=== PATIENT | female | born 2000 | race Caucasian/White ===

== ENCOUNTER 2020-10-25 19:34 | Emergency (ER) | payer BC, SELFPAY ==
[2020-10-25 19:45] VITALS: BP 138/108; PULSE 90; RESP 19; TEMP 36.6; O2SAT 100
[2020-10-25 19:54] VITALS: BP 125/77; PULSE 92; RESP 16; TEMP 36.6; O2SAT 100
[2020-10-25 20:29] VITALS: BP 113/74; PULSE 71; RESP 16; O2SAT 98
[2020-10-25 20:32] LABS: Basophils Absolute Auto 0.1 K/mm3 (0.0-0.1); Basophils Percent Auto 0.5 % (0.2-1.2); Eosinophils Absolute Auto 0.1 K/mm3 (0-0.3); Hematocrit 44.6 % (37.0-47.0); Hemoglobin 15.1 g/dL (12.0-15.0); Immature Granulocyte Absolute 0.04 K/mm3 (0.00-0.031); Immature Granulocyte Percent A 0.4 % (0-0.5); Lymphocytes Absolute Auto 3.28 K/mm3 (0.9-3.2); Lymphocytes Percent Auto 30.6 % (18.3-44.2); Mean Corpuscular HGB Conc 33.9 g/dl (32-36); Mean Corpuscular Hemoglobin 28.2 pg (26-34); Mean Corpuscular Volume 83.4 fl (80-100); Mean Platelet Volume 8.3 fl (7.4-10.4); Monocytes Absolute Auto 0.7 K/mm3 (0.1-0.6); Monocytes Percent Auto 6.6 % (2.6-8.5); Neutrophils Absolute Auto 6.5 K/mm3 (1.3-6.7); Neutrophils Percent Auto 60.9 % (45.5-73.1); Platelet Count Result 348 k/mm3 (150-375); Red Blood Count 5.35 M/mm3 (4.2-5.4); Red Cell Distribution Width 12.3 % (11.5-14.5); White Blood Count 10.7 K/mm3 (4.5-10.0)
[2020-10-25 20:35] LABS: Add Urine Microscopic? NO; Appearance Urine Clear (Clear); Bilirubin Urine Negative (Negative); Blood Urine Negative (Negative); Color Urine Yellow (Yellow); Glucose Urine UA Negative (Negative); Ketones Urine Negative (Negative); Leukocyte Esterase Ur Negative LEU/UL (Negative); Nitrate Urine Negative (Negative); Protein Urine Negative (Negative); Specific Grav Ur 1.021 (1.001-1.035); Urobilinogen Urine Negative mg/dL (<2.0)
[2020-10-25 20:40] LABS: Alanine Aminotransferase 17 U/L (4-35); Albumin Level 4.6 g/dL (3.5-5.1); Alkaline Phosphatase 73 U/L (38-126); Anion Gap 9 mmol/L (8-16); Aspartate Amino Transferase 34 U/L (14-36); Bilirubin,Total 0.2 mg/dL (0.2-1.3); Blood Urea Nitrogen 14 mg/dL (7-17); Calcium 9.3 mg/dL (8.4-10.2); Carbon Dioxide 27 mmol/L (22-30); Chloride 103 mmol/L (98-107); Estimated CRCL calculation 87 ml/min; Estimated Glomerular Filt Rate > 60; Glucose 111 mg/dL (65-105); Lipase 59 U/L (23-300); Potassium 3.4 mmol/L (3.4-5.0); Sodium 139 mmol/L (137-145)
[2020-10-25 21:21] VITALS: BP 117/77; PULSE 94; RESP 18; O2SAT 100
[2020-10-25] MEDS: BELLADONNA ALK/PHENOB ELIX 10 ML, MAG HYDROX/ALUMINUM HYD/SIMETH 30 ML, LIDOCAINE HCL 2... PO (21:21)
--- NOTE | 2020-10-25 22:44 | ED.ABDPAIN ---
HPI - Abdominal Pain General Chief Complaint: Abdominal Pain Stated Complaint: abd pain Time Seen by Provider: 10/25/20 20:08 Source: patient Mode of arrival: ambulatory Limitations: no limitations History of Present Illness HPI narrative: 20-year-old female In the pain in her left upper abdomen and flank for 5 days Denies any other concomitant symptoms such as nausea or vomiting constipation fever She said she did have one loose stool yesterday but that did not seem to be related to any of the symptoms She does not have a cough or shortness of breath No dysuria or hematuria She noticed that the pain was worse after eating some chicken but other than that nothing else is made it better or worse Related Data Home Medications Medication Instructions Recorded Confirmed norgestimate-ethinyl estradiol tablet 05/19/19 [Estarylla] Allergies Allergy/AdvReac Type Severity Reaction Status Date / Time No Known Allergies Allergy Verified 10/25/20 19:50 Review of Systems Review of Systems: All systems reviewed & are unremarkable except as noted in HPI and below Constitutional: Constitutional: Reports no additional constitutional complaints, Denies chills, Denies fever(s) and Denies headache(s) Eyes: Eyes: Reports no additional eye complaints and Denies change in vision ENT: Denies headache(s) and Denies sore throat Cardiovascular: Cardiovascular: Denies chest pain and Denies dyspnea Respiratory: Respiratory: Denies cough and Denies dyspnea Gastrointestinal: Gastrointestinal: Reports abdominal pain, Reports diarrhea and Denies vomiting Genitourinary: Genitourinary: Denies hematuria, Denies urinary frequency, Denies nocturia, Denies dysuria and Reports flank pain Musculoskeletal: Musculoskeletal: Denies deformity, Denies arthralgias, Denies joint swelling and Denies numbness Integumentary/Breasts: Skin/Breast: Denies rash and Denies wounds Neurologic: Denies headache(s), Denies focal weakness and Denies numbness Psychiatric: Psychiatric: Reports no additional psychiatric complaints Endocrine: Endocrine: Reports no additional endocrine complaints Hematologic/Lymphatic: Hematologic/Lymphatic: Reports no additional hematologic/lymphatic complaints Allergic/Immunologic: Allergic/Immunologic: Reports no additional allergic/immunologic complaints FOR[facility]LY [facility] Past Medical History Medical History (Updated 10/25/20 @ 22:47 by Rudolph Courtney MD) Bilateral arm fractures Fracture of right ankle GERD (gastroesophageal reflux disease) History of inguinal hernia Surgical History Surgical History (Updated 05/19/19 @ 19:08 by Brandon Campos) History of inguinal hernia repair History of tonsillectomy and adenoidectomy Social History Social History Gender identity (if verbalized by the patient): Female Exam Const: General: cooperative, no acute distress and alert Orientation/consciousness: patient oriented x3 (alert) HENMT: Head: normal to inspection, normocephalic and atraumatic Ears: external ears normal General nose exam: no epistaxis Eyes: Conjunctivae: conjunctivae normal EOM: EOMs intact bilaterally Neck: Neck: normal visual inspection, supple and no JVD Chest: Chest palpation & inspection: no tenderness Resp: Effort & Inspection: normal respiratory effort and not labored Auscultation: clear to auscultation bilaterally and other (BS =) Cardio: Rate: regular rate Rhythm: regular rhythm Heart sounds: no murmurs GI: Inspection: non-distended GI Palp: Yes Soft to palpation, No Tenderness to palpation present (GI) and No Rebound tenderness present : General: Yes no CVA tenderness Skin: General skin exam: normal color and no rashes or lesions noted Neuro: General: patient oriented x3 (alert) and moves all extremities Speech: normal speech Extrem: General: normal to inspection and no pedal edema Psych: Affect: normal affect Course Course Emergency Course: On reevaluation she omero
[2020-10-25 22:56] VITALS: BP 112/67; PULSE 85; RESP 18; O2SAT 99
== END 2020-10-25 23:08 | disposition home or self-care (01) ==
PROVIDERS: Emergency Medicine; Emergency Provider Emergency Medicine; PCP Family Medicine Sports Medicine
DX: R10.12 Left upper quadrant pain (principal); S29.012A Strain of muscle and tendon of back wall of thorax, initial encounter; K21.9 Gastro-esophageal reflux disease without esophagitis; X50.9XXA Other and unspecified overexertion or strenuous movements or postures, initial encounter
CPT/HCPCS: 36415; 80053; 81003; 81025; 83690; 85025; 99283; A9270

== ENCOUNTER 2021-10-16 14:45 | Outpatient (CLI) | payer BC, SELFPAY ==
--- NOTE | ~2021-10-16 | US_ITS ---
EXAMINATION: US pelvic complete w TV DATE: 10/16/2021 15:40 INDICATION: Irregular menstruation. TECHNIQUE: Multiple transabdominal and transvaginal sonographic images of the pelvis were obtained. COMPARISON: None. FINDINGS: TRANSABDOMINAL ULTRASOUND: The uterus measures 7.5 x 3.7 x 4.9 cm. There is no free fluid in the pelvis. TRANSVAGINAL ULTRASOUND: The endometrial complex measures 12 mm in thickness. The right ovary measures 3.1 x 1.5 x 1.5 cm. The left ovary measures 3.5 x 2.9 x 3.3 cm. There is normal vascular flow in the ovaries. IMPRESSION: 1. Normal pelvis. Reviewed, dictated and finalized at location A. IMPRESSION: 1. Normal pelvis.
== END 2021-10-16 14:46 | disposition home or self-care (01) ==
PROVIDERS: PCP Family Medicine Sports Medicine; Visit Provider Obstetrics & Gynecology
DX: N92.6 Irregular menstruation, unspecified (principal)
CPT/HCPCS: 76830; 76856

== ENCOUNTER 2021-12-13 10:01 | Outpatient (CLI) | payer BC, SELFPAY ==
[2021-12-13 10:50] LABS: Basophils Absolute Auto 0.1 K/mm3 (0.0-0.1); Basophils Percent Auto 0.6 % (0.2-1.2); Eosinophils Absolute Auto 0.1 K/mm3 (0-0.3); Eosinophils Percent Auto 0.7 % (0-4.4); Hematocrit 40.1 % (37.0-47.0); Immature Granulocyte Absolute 0.05 K/mm3 (0.00-0.031); Immature Granulocyte Percent A 0.6 % (0-0.5); Lymphocytes Absolute Auto 1.85 K/mm3 (0.9-3.2); Lymphocytes Percent Auto 20.7 % (18.3-44.2); Mean Corpuscular HGB Conc 34.9 g/dl (32-36); Mean Corpuscular Volume 85.9 fl (80-100); Mean Platelet Volume 8.7 fl (7.4-10.4); Monocytes Absolute Auto 0.6 K/mm3 (0.1-0.6); Monocytes Percent Auto 6.2 % (2.6-8.5); Neutrophils Absolute Auto 6.4 K/mm3 (1.3-6.7); Neutrophils Percent Auto 71.2 % (45.5-73.1); Platelet Count Result 238 k/mm3 (150-375); Red Blood Count 4.67 M/mm3 (4.2-5.4); Red Cell Distribution Width 12.7 % (11.5-14.5); White Blood Count 8.9 K/mm3 (4.5-10.0)
[2021-12-13 10:59] LABS: Alanine Aminotransferase 17 U/L (6-35); Albumin Level 4.1 g/dL (3.5-5.1); Alkaline Phosphatase 55 U/L (38-126); Anion Gap 8 mmol/L (8-16); Aspartate Amino Transferase 25 U/L (14-36); Bilirubin,Total 0.2 mg/dL (0.2-1.3); Blood Urea Nitrogen 7 mg/dL (7-17); Calcium 8.6 mg/dL (8.4-10.2); Carbon Dioxide 22 mmol/L (22-30); Chloride 108 mmol/L (98-107); Estimated Glomerular Filt Rate > 60; Glucose 93 mg/dL (65-110); Lactate Dehydrogenase 378 U/L (313-618); Potassium 3.2 mmol/L (3.4-5.0); Sodium 138 mmol/L (137-145); Uric Acid 4.7 mg/dL (2.5-7.5)
[2021-12-13 11:40] LABS: HIV 1/2 Ab P24 Ag Result Negative (Negative)
[2021-12-13 12:09] LABS: Hepatitis B Surface Antigen Negative (Negative); Rubella IgG Antibody 10.4 IU/ML
[2021-12-16 10:35] LABS: Rapid Plasma Reagin Non-Reactive (NonReactive)
[2021-12-17 14:52] LABS: Varicella IgG Antibody <135.00 Index (>=165.00)
[2021-12-23 11:46] LABS: SMA 2.0 RISK VARIANT NOT DETECTED
[2021-12-28 02:57] LABS: CF Result NEGATIVE (NEGATIVE)
== END 2021-12-13 10:02 | disposition home or self-care (01) ==
LOC: ANHLAB 10:03
PROVIDERS: PCP Family Medicine Sports Medicine; Visit Provider Obstetrics & Gynecology
DX: Z34.90 Encounter for supervision of normal pregnancy, unspecified, unspecified trimester (principal); Z87.59 Personal history of other complications of pregnancy, childbirth and the puerperium
CPT/HCPCS: 36415; 80053; 81220; 81329; 83615; 84550; 84702; 85025; 86592; 86644; 86703; 86747; 86762; 86787; 86850; 86900; 86901; 87086; 87340; G0432

== ENCOUNTER 2021-12-14 12:58 | Outpatient (CLI) | payer BC, SELFPAY ==
[2021-12-14 15:31] LABS: Total Volume 24 Hour Urine 600 ml
[2021-12-14 15:33] LABS: Total Volume 24 Hour Urine 600 ml
[2021-12-14 15:58] LABS: Creatinine 24 Hour Urine 0.7 gm/24 (0.8-1.8); Creatinine Urine 126.9 mg/dL; Total Protein Urine 24 Hr 30 mg/24hr (28-141); Total Protein Urine Random < 5 mg/dL
== END 2021-12-14 12:59 | disposition home or self-care (01) ==
LOC: ANHLAB 12:59
PROVIDERS: PCP Family Medicine Sports Medicine; Visit Provider Obstetrics & Gynecology
DX: Z87.59 Personal history of other complications of pregnancy, childbirth and the puerperium (principal)
CPT/HCPCS: 81050; 82570; 84156

== ENCOUNTER 2022-03-25 08:59 | Outpatient (CLI) | payer BC, SELFPAY ==
[2022-03-25] VITALS (11 sets, daily range): BP systolic 120–128; BP diastolic 75–80; PULSE 98–112; O2SAT 99–100
[2022-03-25 09:48] LABS: Appearance Urine Clear (Clear); Basophils Absolute Auto 0.1 K/mm3 (0.0-0.1); Basophils Percent Auto 0.5 % (0.2-1.2); Bilirubin Urine Negative (Negative); Color Urine Yellow (Yellow); Eosinophils Absolute Auto 0.1 K/mm3 (0-0.3); Eosinophils Percent Auto 0.5 % (0-4.4); Glucose Urine UA Negative (Negative); Hemoglobin 12.9 g/dL (12.0-15.0); Ketones Urine Negative (Negative); Leukocyte Esterase Ur 2+ LEU/UL (NEGATIVE); Lymphocytes Absolute Auto 1.78 K/mm3 (0.9-3.2); Lymphocytes Percent Auto 17.9 % (18.3-44.2); Mean Corpuscular HGB Conc 33.9 g/dl (32-36); Mean Corpuscular Hemoglobin 30.2 pg (26-34); Mean Platelet Volume 8.8 fl (7.4-10.4); Monocytes Absolute Auto 0.6 K/mm3 (0.1-0.6); Monocytes Percent Auto 6.2 % (2.6-8.5); Neutrophils Absolute Auto 7.4 K/mm3 (1.3-6.7); Neutrophils Percent Auto 73.9 % (45.5-73.1); Nitrate Urine Negative (Negative); Platelet Count Result 220 k/mm3 (150-375); Protein Urine Negative (Negative); Red Blood Count 4.27 M/mm3 (4.2-5.4); Red Cell Distribution Width 13.3 % (11.5-14.5); Specific Grav Ur 1.015 (1.001-1.035); Urobilinogen Urine 0.2 mg/dL (<2.0)
[2022-03-25 09:52] LABS: Add Urine Microscopic? YES; Blood Urine Trace-Intact (Negative)
[2022-03-25 09:59] LABS: Bacteria Urine Trace /hpf; Squamous Epithelial Cell Urine Many /hpf (Few)
[2022-03-25 10:03] LABS: Creatinine Urine 55.6 mg/dL; Total Protein Urine Random 8 mg/dL; Ur Ttl Prot Creatinine Ratio 0.14 mg/mg (0-0.20)
[2022-03-25 10:08] LABS: Alanine Aminotransferase 17 U/L (6-35); Albumin Level 3.7 g/dL (3.5-5.1); Alkaline Phosphatase 66 U/L (38-126); Anion Gap 8 mmol/L (8-16); Aspartate Amino Transferase 20 U/L (14-36); Bilirubin,Total 0.2 mg/dL (0.2-1.3); Blood Urea Nitrogen 6 mg/dL (7-17); Calcium 8.8 mg/dL (8.4-10.2); Carbon Dioxide 21 mmol/L (22-30); Chloride 106 mmol/L (98-107); Estimated Glomerular Filt Rate > 60; Glucose 93 mg/dL (65-110); Potassium 3.8 mmol/L (3.4-5.0); Sodium 135 mmol/L (137-145)
== END 2022-03-25 10:20 | disposition home or self-care (01) ==
LOC: ANHOBOP 09:03 → ANHOBPP 09:03
PROVIDERS: PCP Family Medicine Sports Medicine; Visit Provider Obstetrics & Gynecology
DX: O13.9 Gestational [pregnancy-induced] hypertension without significant proteinuria, unspecified trimester (principal); Z3A.00 Weeks of gestation of pregnancy not specified
CPT/HCPCS: 36415; 59025; 80053; 81001; 82570; 84156; 84550; 85025; 87086; 87088; 99199

== ENCOUNTER 2022-04-04 10:34 | Outpatient (CLI) | payer BC, SELFPAY ==
[2022-04-04 11:01] LABS: Basophils Absolute Auto 0.1 K/mm3 (0.0-0.1); Basophils Percent Auto 0.8 % (0.2-1.2); Eosinophils Absolute Auto 0.1 K/mm3 (0-0.3); Eosinophils Percent Auto 0.8 % (0-4.4); Hematocrit 37.7 % (37.0-47.0); Hemoglobin 12.7 g/dL (12.0-15.0); Immature Granulocyte Absolute 0.15 K/mm3 (0.00-0.031); Immature Granulocyte Percent A 1.5 % (0-0.5); Lymphocytes Absolute Auto 1.99 K/mm3 (0.9-3.2); Lymphocytes Percent Auto 19.8 % (18.3-44.2); Mean Corpuscular HGB Conc 33.7 g/dl (32-36); Mean Corpuscular Hemoglobin 30.4 pg (26-34); Mean Corpuscular Volume 90.2 fl (80-100); Mean Platelet Volume 8.7 fl (7.4-10.4); Monocytes Absolute Auto 0.6 K/mm3 (0.1-0.6); Monocytes Percent Auto 5.7 % (2.6-8.5); Neutrophils Absolute Auto 7.2 K/mm3 (1.3-6.7); Neutrophils Percent Auto 71.4 % (45.5-73.1); Platelet Count Result 231 k/mm3 (150-375); Red Blood Count 4.18 M/mm3 (4.2-5.4); Red Cell Distribution Width 12.9 % (11.5-14.5); White Blood Count 10.1 K/mm3 (4.5-10.0)
[2022-04-04 11:51] LABS: HIV 1/2 Ab P24 Ag Result Negative (Negative)
[2022-04-04 12:31] LABS: Glucose 1 Hour PP 50gm Dose 128 mg/dL
== END 2022-04-04 10:35 | disposition home or self-care (01) ==
PROVIDERS: PCP Family Medicine Sports Medicine; Visit Provider Obstetrics & Gynecology
DX: Z34.90 Encounter for supervision of normal pregnancy, unspecified, unspecified trimester (principal); Z3A.00 Weeks of gestation of pregnancy not specified
CPT/HCPCS: 36415; 82947; 84702; 85025; 86703; G0432

== ENCOUNTER 2022-04-24 18:05 | Observation (INO) | payer BC, SELFPAY ==
[2022-04-24 18:26] VITALS: BP 126/72; PULSE 101
[2022-04-24 19:00] VITALS: BMI 27.8
--- NOTE | 2022-04-24 20:22 | OBADM ---
This patient, Aby Reza, admitted to the OB room OB Post 117 for observation. Patient/family oriented to hospital policies and general routines including ID bracelet, bed and alarms, visiting hours, pain management, procedures, bathroom and other care routines, personal items, smoking policy, room service/diet, and visiting hours. Patient/Family are encouraged to report perceived risks to care and to ask questions if they do not understand what they are told or what they should do.
--- NOTE | 2022-04-25 00:24 | PC.NURSE ---
1854- called Dr. Clayton- informed of pt admission for left lower abdomen pain/groin pain that started at 1740.. describes it as a sharp/stabbing pain. pt states that it is hard to lift her left leg up. while palpating abdomen- scar noted on left lower abdomen/pubic area- pt tender to touch over scar area. pt states that she had hernia surgery in 2010 on the left side where her pain is. FHT reviewed. orders received to d/c home with instructions to use belly band for abdominal support, tylenol 1000mg as needed for pain/discomfort, if discomfort does not subside with rest, call office and may set up PT.
--- NOTE | 2022-04-25 11:31 | PM.OBTRLD ---
OB - Triage/Final Diagnosis Visit Information Comments/Additional reasons for admission: I have assessed the risk for this patient, Aby Reza, and determined that she would benefit from observation care. Evaluation Vital signs: Vital Signs - 24 hr 04/24/22 18:26 Pulse Rate 101 H Blood Pressure 126/72 Final Diagnosis (1) Abdominal pain affecting : Code(s): O26.899 - Other specified related conditions, unspecified trimester; R10.9 - Unspecified abdominal pain Status: Acute
== END 2022-04-24 19:28 | disposition home or self-care (01) ==
PROVIDERS: Admitting Provider Obstetrics & Gynecology; PCP Family Medicine Sports Medicine; Visit Provider Obstetrics & Gynecology
DX: O26.893 Other specified pregnancy related conditions, third trimester (principal); R10.31 Right lower quadrant pain; Z3A.31 31 weeks gestation of pregnancy
CPT/HCPCS: G0378; G0379

== ENCOUNTER 2022-05-26 13:00 | Inpatient (IN) | payer BC, SELFPAY ==
[2022-05-26] VITALS (13 sets, daily range): BP systolic 112–123; BP diastolic 66–79; PULSE 102–120; O2SAT 97–100; BMI 31.0
[2022-05-26 13:35] LABS: Appearance Urine Slightly Cloudy (Clear); Bilirubin Urine Negative (Negative); Blood Urine Negative (Negative); Color Urine Light Yellow (Yellow); Glucose Urine UA Negative (Negative); Ketones Urine Negative (Negative); Leukocyte Esterase Ur 3+ LEU/UL (NEGATIVE); Nitrate Urine Negative (Negative); Protein Urine Negative (Negative); Urobilinogen Urine 0.2 mg/dL (<2.0); pH Urine 6.5 (5.0-9.0)
[2022-05-26 13:42] LABS: Bacteria Urine Trace /hpf; Mucus Urine Rare /lpf; Squamous Epithelial Cell Urine Moderate /hpf (Few); WBC Urine 16-20 /hpf (0-3)
[2022-05-26 13:43] LABS: Add Urine Microscopic? YES
[2022-05-26] MEDS: BETAMETHASONE SOD PHOS/ACETATE 30 MG/5 ML VIAL 12 MG IM (14:52)
[2022-05-26] MEDS: NIFEdipine 10 MG CAPSULE PO (14:52)
[2022-05-26] MEDS: ACETAMINOPHEN 500 MG TABLET 1000 MG PO (16:05)
--- NOTE | 2022-05-26 17:40 | PC.NURSE ---
Orders entered under Dr. Jimenez actually received by Dr. Clayton.
[2022-05-26] MEDS: TERBUTALINE SULFATE 1 MG/ML VIAL 0.25 MG SUB-Q (17:51)
[2022-05-26] MEDS: LACTATED RINGERS 1,000 ML 125 ML IV CONT (19:53)
[2022-05-26] MEDS: AMPICILLIN 2 GM/NS 100 ML 2 GM/100 ML BAG IVPB (19:54)
[2022-05-26 20:20] LABS: Basophils Percent Auto 0.3 % (0.2-1.2); Eosinophils Percent Auto 0.1 % (0-4.4); Hematocrit 36.6 % (37.0-47.0); Hemoglobin 12.5 g/dL (12.0-15.0); Immature Granulocyte Absolute 0.09 K/mm3 (0.00-0.031); Immature Granulocyte Percent A 1.3 % (0-0.5); Lymphocytes Absolute Auto 0.64 K/mm3 (0.9-3.2); Lymphocytes Percent Auto 9.1 % (18.3-44.2); Mean Corpuscular HGB Conc 34.2 g/dl (32-36); Mean Corpuscular Hemoglobin 29.7 pg (26-34); Mean Corpuscular Volume 86.9 fl (80-100); Monocytes Absolute Auto 0.1 K/mm3 (0.1-0.6); Neutrophils Absolute Auto 6.2 K/mm3 (1.3-6.7); Neutrophils Percent Auto 88.2 % (45.5-73.1); Platelet Count Result 198 k/mm3 (150-375); Red Blood Count 4.21 M/mm3 (4.2-5.4); Red Cell Distribution Width 13.2 % (11.5-14.5); White Blood Count 7.1 K/mm3 (4.5-10.0)
[2022-05-27] VITALS (305 sets, daily range): BP systolic 94–143; BP diastolic 56–98; PULSE 65–214; RESP 16; TEMP 36.4–37.6; O2SAT 90–100
[2022-05-27] MEDS: AMPICILLIN 1 GM/NS 50 ML 1 GM/50 ML BAG IVPB ×6 (00:10→22:09)
[2022-05-27] MEDS: LACTATED RINGERS 1,000 ML 125 ML IV CONT ×3 (04:06→22:17)
[2022-05-27] MEDS: NIFEdipine 10 MG CAPSULE PO (07:21)
--- NOTE | 2022-05-27 07:22 | WPDOBADMIT ---
Obstetrics - Admit Note Admission Note: record reviewed. No pertinent additions to the history and/or any subsequent changes in the physical findings that are not consistent with the expected course of the were found. Additions to the history and/or subsequent changes in the physical findings follow. Aby is a 21yo @ 35.4wks admitted with contractions; s/p procardia and terb x1, fluids, ampicillin for GBS ppx, and betamethasone x1. Has made change from 2 to 4cm overnight. Continuing to contract q 5min FHT's: 130's/ mod hannah/ + accels/ no decels - cat 1 TOCO: ctx's q5min Keep throughout the day for betamethasone #2 Continue fluids and procardia 10mg q6-8 hrs Continue ampicillin for GBS ppx If no change after 2nd betamethasone, will discharge home
[2022-05-27 10:19] LABS: Rapid Plasma Reagin Non-Reactive (NonReactive)
[2022-05-27] MEDS: fentaNYL CITRATE INJ (*CRX) 100 MCG/2 ML VIAL 50 MCG IV PUSH ×2 (12:53→20:15)
[2022-05-27] MEDS: BETAMETHASONE SOD PHOS/ACETATE 30 MG/5 ML VIAL 12 MG IM (15:08)
--- OUTSIDE RECORDS SUMMARY | 2022-05-27 15:59 | XMS_ITS ---
:2000 Author Care Team Providers Name Role Phone Gianluca Perdomo Primary Care Provider Unavailable Allergies Code Code System Name Reaction Severity Status Onset NKDA ? Medications Name Status Start Date Stop Date ? ? alprazolam 0.25 mg tablet Active ? Not av ailable amoxicillin 875 mg-potassium clavulanate 125 mg tablet Completed ? 08/11/2019 azithromycin 250 mg tablet Completed ? 08/12 citalopram 10 mg tablet Active ? Not avai lable Estarylla 0.25 mg-35 mcg tablet Active ? Not available ibuprofen 600 mg tablet Completed ? 12/23/19 18 labetalol 100 mg tablet Completed ? 08/12/19 20 ondansetron HCl 4 mg tablet Completed ? 07/15 promethazine 25 mg tablet Completed ? 2019 Problems No Known Problems Procedures Date Name Performed by ? ? Tonsillectomy Information not avai lable ? Hernia Repair Information not avai lable Results Lab Results Date Name Specimen Result Interpretation Description Value Range Status Address ? 01/01/2018 Iron + High Iron, Total 177 mcg/dL 27-164 Fin al [facility] TIBC + mcg/dL Diagnostic s - Ferritin, [facility] is: [address] Serum Administra tion, [facility] ? ? Normal Iron Binding 312 mcg/dL 271-448 Final [facility] Capacity (calc) mcg/dL Diagnost ics - (calc) [place]: [address] Administra tion, [facility] ? ? High
--- OUTSIDE RECORDS SUMMARY | 2022-05-27 15:59 | XMS_ITS ---
:2000 Author Care Team Providers Name Role Phone JETT DUKES Primary Care Provider Unavailable Allergies Code Code System Name Reaction Severity Status Onset NKDA ? Medications Name Status Start Date Stop Date ? ? alprazolam 0.25 mg tablet Completed ? 2019 amoxicillin 500 mg capsule Completed ? 07/21 amoxicillin 875 mg-potassium clavulanate 125 mg tablet Completed ? 09/17/2018 azithromycin 250 mg tablet Completed ? 01/19 chlorhexidine gluconate 0.12 % mouthwash Completed ? 07/21/2018 citalopram 10 mg tablet Completed ? 01/20/20 20 Estarylla 0.25 mg-35 mcg tablet Active ? Not available take 1 tablet by mouth daily ibuprofen 600 mg tablet Completed ? 07/21/19 19 Iron (ferrous sulfate) 325 mg (65 mg iron) tablet Completed ? 03/25/2019 Take 1 tablet every day by oral route. labetalol 100 mg tablet Completed ? 05/13/20 19 ondansetron HCl 4 mg tablet Completed ? 03/13 promethazine 25 mg tablet Completed ? 2018 pyridoxine (vitamin B6) 25 mg tablet Completed ? 02/08/2019 Take 1 tablet 4 times a day by oral route. sulfamethoxazole 800 mg-trimethoprim 160 mg tablet Completed ? 07/21/2018 Unisom (doxylamine) 25 mg tablet Completed ? 02/08/2019 Take 12.5 mg 3 times a day by oral route. Problems Name Status Onset Date Source ? Unknown 07/26/2018 ? Pain in Elbow Active ? ? Sprain of Shoulder and Upper Arm Active ? ? Procedures Date Name Performed by ? ? Tonsillectomy Information not nemesio gant Notes: as a child
--- OUTSIDE RECORDS SUMMARY | 2022-05-27 15:59 | XMS_ITS ---
:2000 Author Care Team Providers Name Role Phone LISANDRO ARECHIGA Primary Care Provider [phone] Allergies Code Code System Name Reaction Severity Status Onset NKDA ? Medications Name Status Start Date Stop Date ? ? alprazolam 0.25 mg tablet Completed ? 2019 amoxicillin 500 mg capsule Completed ? 01/25 amoxicillin 875 mg-potassium clavulanate 125 mg Completed ? 09/17/2018 tablet azithromycin 250 mg tablet Completed ? 01/19 chlorhexidine gluconate 0.12 % mouthwash Completed ? 07/21/2018 citalopram 10 mg tablet Completed ? 01/20/20 20 Estarylla 0.25 mg-35 mcg tablet Active ? Not available TAKE 1 TABLET DAILY famotidine 40 mg tablet Completed ? 01/26/20 21 ibuprofen 600 mg tablet Completed ? 07/21/19 19 Iron (ferrous sulfate) 325 mg (65 mg iron) tablet Completed 01/25/2019 03/25/2019 Take 1 tablet every day by oral route. labetalol 100 mg tablet Completed ? 05/13/20 19 naproxen 500 mg tablet Completed ? 1 ondansetron HCl 4 mg tablet Completed ? 03/13 promethazine 25 mg tablet Completed ? 2018 pyridoxine (vitamin B6) 25 mg tablet Completed ? 02/08/2019 Take 1 tablet 4 times a day by oral route. sulfamethoxazole 800 mg-trimethoprim 160 mg Completed ? 07/21/2018 tablet Unisom (doxylamine) 25 mg tablet Completed ? 02/08/2019 Take 12.5 mg 3 times a day by oral route. Problems Name Status Onset Date Source ? Daytime Hypersomnia Active 01/15/2018 ? Fatigue Active 01/15/2018 ? Snoring Active 01/16/20
--- OUTSIDE RECORDS SUMMARY | 2022-05-27 15:59 | XMS_ITS ---
:2000 Author Care Team Providers Name Role Phone Gianluca Perdomo Primary Care Provider Unavailable Allergies Code Code System Name Reaction Severity Status Onset NKDA ? Medications Name Status Start Date Stop Date ? ? alprazolam 0.25 mg tablet Active ? Not av ailable amoxicillin 875 mg-potassium clavulanate 125 mg tablet Active ? Not available azithromycin 250 mg tablet Active ? Not a vailable citalopram 10 mg tablet Active ? Not avai lable Estarylla 0.25 mg-35 mcg tablet Active ? Not available ibuprofen 600 mg tablet Completed ? 01/16/20 18 labetalol 100 mg tablet Active ? Not avai lable ondansetron HCl 4 mg tablet Active ? Not available promethazine 25 mg tablet Active ? Not av ailable Problems Name Status Onset Date Source ? Daytime Hypersomnia Active 01/15/2018 ? Fatigue Active 01/15/2018 ? Snoring Active 01/15/2018 ? Procedures Date Name Performed by ? ? Hernia Repair Information not avai lable ? Tonsillectomy Information not avai lable Results Lab Results None recorded. Past Encounters None recorded. Social History Tobacco Smoking Status Never Smoker Vaccine List None recorded. Plan of Care Reminders Provider Appointments None recorded. ? ? Lab None recorded. ? ? Referral None recorded. ? ? Procedures None recorded. ? ? Surgeries None recorded. ? ? Imaging None recorded. ? ? Vitals 04/09/2018 02:45PM ANY APPOINTMENT 15 Height Weight
--- OUTSIDE RECORDS SUMMARY | 2022-05-27 15:59 | XMS_ITS ---
[...] TIBC + mcg/dL Diagnostic s - Ferritin, [facility] is: [address] Serum Administra tion, [facility] ? ? Normal Iron Binding 312 mcg/dL 271-448 Final [facility] Capacity (calc) mcg/dL Diagnost ics - (calc) [place]: [address] Administra tion, [facility] ? ? High
[2022-05-27] MEDS: OXYTOCIN 30 UNITS/NS 500 ML 30 UNITS/500 ML BAG IV CONT (18:25)
--- NOTE | 2022-05-27 21:26 | P.PNAN_ITS ---
Anes - Eval Pre Procedure Procedure: Labor epidural Date/Time: 05/27/22 21:26 Surgeon: Tony Preop Diagnosis: Abdominal pain with contractions Pre Op Diagnosis: Pressure/Abdominal Pain Patient Data Age: 21 Gender: F Height: 1.57 m Weight: 77 kg Last Vital Signs Temp 98.7 F 05/27/22 19:46 Pulse 107 H 05/27/22 21:16 Resp 16 05/27/22 04:08 BP 135/94 H 05/27/22 21:16 Pulse Ox 98 05/27/22 21:16 O2 Del Method Room Air 05/27/22 19:35 Allergies Allergy/AdvReac Type Severity Reaction Status Date / Time No Known Allergies Allergy Verified 05/27/22 16:09 Home Medications Medication Instructions Recorded Confirmed Type vits 75-iron 28 mg-folic pkg PO 11/15/21 05/02/22 History acid 800 mcg-omega-3 oral combo pack (One A Day Women's DHA) aspirin 81 mg chewable tablet 81 mg PO DAILY 03/25/22 05/27/22 History Laboratory Tests 05/26/22 05/26/22 19:49 19:49 RPR Non-reactive (NonReactive) Antibody Screen Negative : gestational age HCG: positive Patient hx anesthesia problems: none Family hx anesthesia problems: none Results Review: All pre-operative results and documents have been reviewed as part of the pre- operative evaluation. [facility] Past Medical History Medical History Anxiety Bilateral arm fractures Fracture of right ankle GERD (gastroesophageal reflux disease) Gestational diabetes Gestational hypertension History of inguinal hernia Surgical History Surgical History History of endoscopy (~06/12/21) normal History of inguinal hernia repair 2011 History of tonsillectomy and adenoidectomy as child Family History Family History Father Hypertension Hypothyroid Grandparent Diabetes mellitus paternal grandmother Social History Social History Smoking status: Never smoker Alcohol intake: never Substance use: never Substance use type: does not use Lack of Transportation: No Lack of Food: Never True Current Housing: I Have Housing Concerned About Future Housing: No Difficulty Paying Gas/Electric Bills: No Difficulty Paying for Meds: No Currently Unemployed: No Education: High School Diploma/GED Difficulty w/ Childcare or Family Care: No Additional living arrangements comments: parents 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
--- NOTE | 2022-05-27 23:02 | P.PCNOB_ITS ---
OB - Delivery Note Procedure Events: Premature Rupture of Membranes Induction method: None Delivery augmentation: Pitocin Delivery monitor: External FHT and External Uterine Route of delivery: Episiotomy description: None Laceration Description: None Specimen: Yes Quantitative Blood Loss (ml): 300 Anesthesia type: Epidural Disposition: Floor Complications: None Narrative: patient prepped in usual manner for this procedure. Maternal expulsive efforts readily delivered vertex over intact perineum. Rest of baby was delivered without difficulty, cord was clamped cut, and placenta delivered spontaneously as well. Cervix vagina vulva were inspected with no lacerations or tears. Uterus well contracted with minimal bleeding. At this point the procedure was considered terminated with immediate postoperative condition of mother and baby both excellent. [place] Baby Weeks of gestation at delivery: 36 gender: Male Weight (pounds): 6 Weight (ounces): 2 presentation: vertex Placenta delivery description: Spontaneous Cord Vessel Description: 3 Vessels score one minute: 9 score five minutes: 9
--- NOTE | 2022-05-27 23:02 | WPDHPUPDATE1 ---
History and Physical Update Update Date/Time: 05/27/22 23:02 History and Physical has been reviewed, including an updated exam of the patient. There are NO changes in the patient's condition. Risks, benefits, and alternatives have been discussed and questions answered. Patient agrees to proceed with procedure.
--- NOTE | 2022-05-27 23:02 | WPDOBADMIT ---
Obstetrics - Admit Note Admission Note: record reviewed. No pertinent additions to the history and/or any subsequent changes in the physical findings that are not consistent with the expected course of the were found. Additions to the history and/or subsequent changes in the physical findings follow. None.
[2022-05-28] VITALS (14 sets, daily range): BP systolic 110–143; BP diastolic 67–119; PULSE 81–108; RESP 16–20; TEMP 36.2–37.1; O2SAT 85–99
[2022-05-28] MEDS: IBUPROFEN 600 MG TABLET PO ×2 (03:26→17:19)
[2022-05-28] MEDS: ACETAMINOPHEN 325 MG TABLET 650 MG PO (08:19)
[2022-05-28] MEDS: MULTIVIT/MIN/PREN/FOL AC/IRON TABLET 1 TAB PO (08:20)
--- NOTE | 2022-05-28 16:30 | OBPPTRN ---
Patient transferred to post room #288 via wheelchair. Support person present. Oriented to unit, room, information board, rooming in, admission packet and security measures. Patient verbalizes understanding.
[2022-05-28] MEDS: DOCUSATE SODIUM 100 MG CAPSULE PO (16:57)
--- NOTE | 2022-05-28 17:04 | PC.NURSE ---
Reported to RN that mother will attempt to breastfeed, then bottle feed with formula. 1020 - Mother is sleeping.
[2022-05-28 17:09] LABS: Hematocrit 35.9 % (37.0-47.0); Hemoglobin 11.9 g/dL (12.0-15.0)
--- NOTE | 2022-05-28 17:31 | PC.NURSE ---
1670 -Introductions were made, then consulted with patient to assess needs related to . Mother led the conversation with her?plans to feed?her infant and the?experience so far. Primary RN is present and the feeding plan is in place to attempt to breastfeed, pump the breast for stimulating milk production (pump is in the room), then supplement feed infant with either breast milk or formula. Mother voiced understanding of information and will call if there is a request for assistance.
[2022-05-29] MEDS: IBUPROFEN 600 MG TABLET PO ×2 (05:29→17:02)
[2022-05-29 08:00] VITALS: BP 118/83; PULSE 78; RESP 18; TEMP 37.6; O2SAT 100
[2022-05-29] MEDS: MULTIVIT/MIN/PREN/FOL AC/IRON TABLET 1 TAB PO (08:34)
[2022-05-29] MEDS: DOCUSATE SODIUM 100 MG CAPSULE PO ×2 (08:34→17:02)
--- NOTE | 2022-05-29 09:24 | PM.OBDSVD ---
DS: Admitting Diagnosis Discharge Date 05/29/2022 Admitting Diagnosis OB - DS: Summary OB Procedures : None OB Procedures Intrapartum: Spontaneous Vag Delivery OB Procedures: : None Time Spent with Patient Time attestation: Total time spent providing and/or coordinating discharge services: DS: Data Data Completed and Pending Pending studies at discharge: Pending at discharge 05/27/22 22:58 Surgical [PTH] Routine Labs on day of discharge: Labs from last 24 hours 05/28/22 16:56 Hgb 11.9 L Hct 35.9 L Discharge Plan Discharge Discharging Clinician: Jose Alfredo Jimenez Patient Disposition: Home, Self-Care Activity: as tolerated Diet: as tolerated Patient Instructions: Antibiotic Form Stand Alone Forms: General Discharge Information Follow-up/Referrals: Jose Alfredo Jimenez MD [Physician] - 3 Weeks Discharge Medications: New ibuprofen 600 mg Tablet 600 mg PO Q6H PRN (Reason: Cramping) Qty: 30 0RF Continued One A Day Women's DHA 28 mg iron- 800 mcg combo pack PO Discontinued aspirin 81 mg Tablet,Chewable 81 mg PO DAILY Date of admission: 05/26/22 13:00 Primary Care Provider: Jesus Alberto,Zhao Deutsch Admitting Provider: Jose Alfredo Jimenez Attending physician on admission: Jose Alfredo Jimenez Condition: Stable
--- NOTE | 2022-05-29 13:53 | PC.NURSE ---
Primary RN reported to RN that patient is pumping her breast for milk and plans to bottle feed her EGA 35 4/ infant.
[2022-05-29 20:25] VITALS: BP 129/75; PULSE 92; RESP 18; TEMP 36.7
[2022-05-30 08:00] VITALS: PULSE 70; RESP 18; O2SAT 100
[2022-05-30 08:20] VITALS: BP 113/69; PULSE 70; RESP 18; TEMP 36.9; O2SAT 100
--- NOTE | 2022-05-30 09:12 | PM.OBDSVD ---
DS: Admitting Diagnosis Discharge Date 05/30/2022 Admitting Diagnosis OB - DS: Summary OB Procedures : None OB Procedures Intrapartum: Spontaneous Vag Delivery OB Procedures: : None Time Spent with Patient Time attestation: Total time spent providing and/or coordinating discharge services: DS: Data Data Completed and Pending Pending studies at discharge: Pending at discharge 05/27/22 22:58 Surgical [PTH] Routine Discharge Plan Discharge Discharging Clinician: Jose Alfredo Jimenez Patient Disposition: Home, Self-Care Activity: as tolerated Diet: as tolerated Patient Instructions: Antibiotic Form Stand Alone Forms: General Discharge Information Follow-up/Referrals: Jose Alfredo Jimenez MD [Physician] - 3 Weeks Discharge Medications: New ibuprofen 600 mg Tablet 600 mg PO Q6H PRN (Reason: Cramping) Qty: 30 0RF Continued One A Day Women's DHA 28 mg iron- 800 mcg combo pack PO Discontinued aspirin 81 mg Tablet,Chewable 81 mg PO DAILY Date of admission: 05/26/22 13:00 Primary Care Provider: Jesus AlbertoZhao Admitting Provider: Jose Alfredo Jimenez Attending physician on admission: Jose Alfredo Jimenez Condition: Stable
[2022-05-30] MEDS: IBUPROFEN 600 MG TABLET PO (10:11)
[2022-05-30] MEDS: MULTIVIT/MIN/PREN/FOL AC/IRON TABLET 1 TAB PO (10:11)
--- NOTE | 2022-05-30 10:50 | PC.NURSE ---
Patient was given the opportunity to view the discharge video Mother & Baby Care, The First Two Weeks and to ask questions. Patient declined viewing the video and has been given the mother/baby guide for home reference.
--- NOTE | 2022-05-30 12:47 | PC.NURSE ---
[id number] Mother voiced that she is comfortable with her plan to pump her breast for milk production to bottle feed breast milk to her 35 4/7 infant. Mother confirmed she was not latching her infant and doesn't have any questions or concerns at this time.
--- NOTE | 2022-05-30 12:49 | PC.NURSE ---
1132 Mother is feeding appropriately for growth of . Infant has had appropriate feedings in the last 24 hours meets the outcomes for weight, output and jaundice at this time. Reinforced understanding of milk production, transition of milk, signs of adequate intake, prevention/relief of engorgement, responsive after visualizing feeding cues, the different methods of stimulating infant to breastfeed 2-3 hours after the start of the last feeding, community resources, medication information reviewed per [facility] and when to call a provider using the resource of the mom and baby guide/[facility] website. Mother voiced understanding of the education shared.
[2022-05-31 07:46] VITALS: BP 119/87; PULSE 90; RESP 16; TEMP 36.9; O2SAT 99
== END 2022-05-30 13:49 | disposition home or self-care (01) | DRG 807 ==
LOC: ANHOBPP 05-27 15:56 → ANHLDR 05-27 15:56 → ANHOBPP 05-28 03:05 → ANHOB2 05-28 16:38
PROVIDERS: Obstetrics & Gynecology; Admitting Provider Obstetrics & Gynecology; PCP Family Medicine Sports Medicine; Visit Provider Obstetrics & Gynecology
DX: O42.913 Preterm premature rupture of membranes, unspecified as to length of time between rupture and onset of labor, third trimester (principal); Z37.0 Single live birth; Z3A.36 36 weeks gestation of pregnancy; O62.3 Precipitate labor; O76 Abnormality in fetal heart rate and rhythm complicating labor and delivery; Z3A.35 35 weeks gestation of pregnancy
CPT/HCPCS: 36415; 81001; 84112; 85014; 85018; 85025; 86592; 86850; 86900; 86901; 87086; 87088; 87147; 88307; A9270; J0290; J0702; J2590; J2795; J3010; J3105; J7120

== ENCOUNTER 2022-07-08 13:00 | Emergency (ER) | payer BC, SELFPAY ==
--- NOTE | ~2022-07-08 | XR_ITS ---
Left foot Technique: AP, oblique, and lateral views were obtained. Clinical History: Maunie in foot Findings: There is a fishhook at the lateral aspect of the foot at the level of the mid fifth metatar mary shaft. No acute fracture or dislocation is seen. Osseous alignment is anatomic. Joint spaces are preserved without erosive or degenerative change. Soft tissues are otherwise unremarkable. Impression: Maunie in the lateral aspect of the foot, as detailed above. Reviewed, dictated and finalized at location M. E IN THEATER ATTENDANT Impression: Maunie in the lateral aspect of the foot, as detailed above.
[2022-07-08 13:10] VITALS: BP 144/81; PULSE 89; RESP 14; TEMP 36.7; O2SAT 99
--- NOTE | 2022-07-08 14:28 | ED.GENADULT ---
HPI - General Adult General Chief complaint: Extremity Injury, Lower Stated complaint: FB foot L Time Seen by Provider: 07/08/22 13:56 History of Present Illness HPI narrative: 21-year-old female no past medical history last tetanus shot 12 years ago presented with fishhook to lateral left foot. Per patient she is walking around barefoot in her house, where her significant other dropped a fish previously, she did not see it stepped on it. Was unable to remove it so presents the ED for further evaluation. He reports last tetanus shot was 12 years denies injury anywhere else. Denied other medical complaints. Past medical history: Denied Allergies no known drug allergies Related Data Home Medications Medication Instructions Recorded Confirmed vits 75-iron 28 mg-folic pkg PO 11/15/21 06/17/22 acid 800 mcg-omega-3 oral combo pack (One A Day Women's DHA) Allergies Allergy/AdvReac Type Severity Reaction Status Date / Time No Known Allergies Allergy Verified 07/08/22 14:40 Review of Systems Review of Systems: See HPI PMF Past Medical History Medical History Anxiety Bilateral arm fractures Fracture of right ankle GERD (gastroesophageal reflux disease) Gestational diabetes Gestational hypertension History of inguinal hernia Surgical History Surgical History History of endoscopy (~06/12/21) normal History of inguinal hernia repair 2011 History of tonsillectomy and adenoidectomy as child Family History Family History Father Hypertension Hypothyroid Grandparent Diabetes mellitus paternal grandmother Social History Social History Smoking status: Never smoker Alcohol intake: never Substance use: never Substance use type: does not use Lack of Transportation: No Lack of Food: Never True Current Housing: I Have Housing Concerned About Future Housing: No Difficulty Paying Gas/Electric Bills: No Difficulty Paying for Meds: No Currently Unemployed: No Education: High School Diploma/GED Difficulty w/ Childcare or Family Care: No Additional living arrangements comments: parents 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 Gender identity (if verbalized by the patient): Female Sexual Orientation (if Verbalized by the Patient): Straight or Heterosexual Spiritual care concerns: No Exam Narrative: APPEARANCE: Alert, calm and cooperative, no acute distress, phonating, sitting comfortably during visit HEAD: atraumatic EYES: Pupils equal round an reactive to light, extra ocular movements intact, no conjunctival injection NOSE: Normal no drainage NECK: Supple, without meningismus EXTREMITIES: Fish hook to lateral left foot, no surrounding erythema, no fluctuance, remaining extremities within normal limits, No edema, palpable peripheral pulses, warm, well perfused, no tenderness to bilateral calves. NEURO: Alert, moving all extremities symmetrically SKIN:: Warm, dry. Normal color PSYCHIATRIC: Normal affect/mood Course Vital Signs Vital signs: Vital Signs Temperature 98.1 F 07/08/22 13:10 Pulse Rate 89 07/08/22 13:10 Respiratory Rate 14 07/08/22 13:10 Blood Pressure 144/81 H 07/08/22 13:10 Pulse Oximetry 99 07/08/22 13:10 Oxygen Delivery Room Air 07/08/22 13:10 Temperature 98.1 F 07/08/22 13:10 Pulse Rate 89 07/08/22 13:10 Respiratory Rate 14 07/08/22 13:10 Blood Pressure 144/81 H 07/08/22 13:10 Pulse Oximetry 99 07/08/22 13:10 Oxygen Delivery Room Air 07/08/22 13:10 Procedures Foreign Body Removal Foreign Body #1: Foreign Body Removal Date: 07/08/22 Foreign Body Removal Time: 15:06 Time Out Performed: yes Site: left and foot Description
[2022-07-08] MEDS: TETANUS,DIPHTHERIA,AC PERTUSSIS ADULT (0.5 ML) BOOSTRIX IM (14:46)
== END 2022-07-08 15:30 | disposition home or self-care (01) ==
PROVIDERS: Emergency Provider Emergency Medicine; PCP Family Medicine Sports Medicine
DX: S91.342A Puncture wound with foreign body, left foot, initial encounter (principal); F41.9 Anxiety disorder, unspecified; K21.9 Gastro-esophageal reflux disease without esophagitis; W26.8XXA Contact with other sharp object(s), not elsewhere classified, initial encounter; Z23 Encounter for immunization
CPT/HCPCS: 28190; 73630; 90471; 90715; 99283

== ENCOUNTER 2024-10-12 19:13 | Emergency (ER) | payer OTHER, SELFPAY ==
--- OUTSIDE RECORDS SUMMARY | 2024-10-12 19:15 | XMS_ITS | Continuity of Care Document ---
Author Organization [facility] Address [address] [place] [address] [place] [address] Phone Care Team Providers Care Oxygen Plant Operator Name Role Phone Pollock OD, Rudolph Unavailable Unavailable Procedures Procedure Date Eye Exam, New Patient Advance Directives Directive Yes / No Effective Date File Name No Information Encounters Encounter Description Practice Location Reason(s) For Visit Diagnoses Date Provider Providers Copied on Encounter [facility], [address], [place], [place], [id number], [place] tel:[phone] SEC [facility] No Information 5-200 8 Pollock OD Rudolph. [address] [facility] , [address], [place], [place], [facility], [place]. tel:[phone] Referring Provider: Morena Barlow MD, [address], [place], [place], [facility]. tel:[phone] Family History Family Member Type Diagnosis Age At Onset No Information Payers Payer name Insurance type Covered democrat ID Authoriza tion(s) No Information Social History Type Description Quantity Date Captured Comments Sex Female Smoking Status No Information Chief Complaint And Reason For Visit No Information Reason For Referral Reason For Referral No Information History Of Present Illness Encounter Date Complaint History Of Prese nt Illness No Information Functional Status Date Functional Assessmen t No Information Instructions Date Instruction Additional Infor mation No Information Assessments Type Assessment Date No Information Patient Care Teams Name Effective Dates (start - stop) Status Members No Information
--- OUTSIDE RECORDS SUMMARY | 2024-10-12 19:15 | XMS_ITS | Patient Health Record ---
Author Organization [employer] Address [address] [facility] [address] [place] [address] Care Team Providers Care Supervisor Order Takers Name Role Phone Zhao Mccollum MD [facility] Rafy Gibbons Unavailable [phone] Allergies No Known Allergies Reason For Referral No Information Medications Medication SIG (Take, Route, Frequency, Duration) Notes Start Date End Date Status BCP Active Social History Tobacco Use: Social History Observation Description Date Details (start date - stop date) Never Smoker NA - NA Tobacco Use/Smoking Question Answer Notes Are you a nonsmoker Problems Problem Type SNOMED Code ICD Code Onset Dates Problem Status W/U Status Risk Notes Problem 3836404 Gastritis, unspecified , without bleeding (K29.70) Active confirmed Problem 058849678 Right upper quadrant pain (R10.11) Active confirmed Symptoms are worse after eating with radiation to her back and into her chest. She underwent ultrasound and HIDA scan which are unavailable for review. Differential diagnosis includes a gallbladder etiology, GERD, peptic ulcer disease, and celiac disease. Problem 52110733 Diarrhea (R19.7) Active confirmed Diarrhea since onset of the right upper quadrant pain. Given her family history of celiac disease would like to evaluate. Other considerations include irritable bowel syndrome, small bowel intestinal bacterial overgrowth, food intolerances, or other. Problem 506022127 Family history of celiac disease (Z83.79) Active confirmed Plan Of Treatment Pending Test Test Name Order Date Upper Endoscopy 03/20/2021 Insurance Providers Payer Name Payer Address Payer Phone Subscriber Number Group Number Insured Name Patient Relationship to Insured Coverage Start Date Coverage End Date Blue Access Choice PPO [id number] [address] [place] [phone] [id number] Terry Reza Child - Insured has Financial Responsibility Medical (General) History Surgical History Surgery Date(Month/Year) Hernia Tonsillectomy Hospitalization History Reason Date(Month/Year) Childbirth
--- OUTSIDE RECORDS SUMMARY | 2024-10-12 19:15 | XMS_ITS | Clinical Summary ---
Author Organization [facility] Address [address] [place] [address] Care Team Providers Care Nut Former Name Role Phone Morena Barlow MD Primary Care Provider [phone] Source Comments [facility],non-owned Affiliates and Associated Physician Practices is amultiple site organization consisting of ambulatory clinics and hospital sitesin [place], [place], [place] and [place]. This disclosure is being madepursuant to the Care Everywhere program and may not contain all information available regarding this patient. Last updated 18.[facility] Allergies No known active allergies Medications * Be aware that medications may not be up to date on this document. Alwaysverify current medications with the patient. Medication Sig Dispensed Refills Start Date End Date Status docusate sodium (COLACE) 100 MG capsule Take 1 Cap by mouth once daily. 30 Cap 0 03/21/2012 Active Social History Tobacco Use Types Packs/Day Years Used Date Smoking Tobacco: Never Assessed Sex and Gender Information Value Date Recorded Sex Assigned at Not on file Gender Identity Not on file Sexual Orientation Not on file Last Filed Vital Signs Vital Sign Reading Time Taken Comments Blood Pressure 123/67 03/21/2012 10:11 AM CDT Pulse 96 03/21/2012 10:11 AM CDT Temperature 36.2 C (97.2 F) 03/21/2012 10:11 AM CDT Respiratory Rate 18 03/21/2012 10:11 AM CDT Oxygen Saturation - - Inhaled Oxygen Concentration - - Weight 44.5 kg (98 lb 1.7 oz) 03/21/2012 10:11 A M CDT Height - - Body Mass Index - - Plan of Treatment Health Maintenance Due Date Last Done Comments PAP SMEAR 1998 HIV SCREENING 2013 HPV VACCINE (1 - 3-dose series) 2013 CHLAMYDIA/GONORRHEA SCREENING 2014 HEPATITIS C SCREENING 08/14/2016 DTAP/TDAP/TD VACCINES (1 - Tdap) 2017 HEPATITIS B VACCINE (1 of 3 - 19+ 3-dose series) 2017 COVID-19 VACCINE (1 - 2023-2 5 season) 2024 INFLUENZA VACCINE (#1) 2024 DEPRESSION SCREENING 07/13/2024 ZOSTER VACCINE (1 of 2) 2048 HIB VACCINE Aged Out No longer eligi ble based on patient's age to complete this topic MENINGOCOCCAL (Group B) VACC INE SHARED DECISION-MAKING Aged Out No longer eligibl e based on patient's age to complete this topic MENINGOCOCCAL GROUPS A/C/Y/W VACCINE Aged Out No longer eligible b ased on patient's age to complete this topic PNEUMOCOCCAL VACCINE Aged Out No long er eligible based on patient's age to complete this topic Care Teams Nut Former Relationship Specialty Start Date End Date Morena Barlow MD [address] [facility] [address] [place] [id number] PCP - General Pediatrics 03/21/12
[2024-10-12 19:17] VITALS: BP 115/97; PULSE 101; RESP 15; TEMP 36.4; O2SAT 100
[2024-10-12 19:42] LABS: Basophils Percent Auto 0.4 % (0.2-1.2); Eosinophils Absolute Auto 0.2 K/mm3 (0-0.3); Eosinophils Percent Auto 1.4 % (0-4.4); Hematocrit 43.1 % (37.0-47.0); Hemoglobin 14.8 g/dL (12.0-15.0); Immature Granulocyte Absolute 0.05 K/mm3 (0.00-0.031); Immature Granulocyte Percent A 0.5 % (0-0.5); Lymphocytes Absolute Auto 0.82 K/mm3 (0.9-3.2); Lymphocytes Percent Auto 7.7 % (18.3-44.2); Mean Corpuscular HGB Conc 34.3 g/dl (32-36); Mean Corpuscular Hemoglobin 29.4 pg (26-34); Mean Corpuscular Volume 85.7 fl (80-100); Mean Platelet Volume 8.5 fl (7.4-10.4); Monocytes Absolute Auto 0.4 K/mm3 (0.1-0.6); Monocytes Percent Auto 3.9 % (2.6-8.5); Neutrophils Absolute Auto 9.1 K/mm3 (1.3-6.7); Neutrophils Percent Auto 86.1 % (45.5-73.1); Platelet Count Result 239 k/mm3 (150-375); Red Blood Count 5.03 M/mm3 (4.2-5.4); Red Cell Distribution Width 12.3 % (11.5-14.5); White Blood Count 10.6 K/mm3 (4.5-10.0)
--- NOTE | 2024-10-12 19:42 | ED_ITS ---
HPI - Headache General Chief Complaint: Headache Stated Complaint: Guerrero, n/v Time Seen by Provider: 10/12/24 19:28 History of Present Illness HPI Narrative: 24-year-old female with a history of headaches presenting to the emergency room with chief complaint of headache since Thursday morning. She endorses nausea vomiting. She states started at work and there was reportedly a gas leak at her job on Thursday. Not sure of any similar symptoms are found in her coworkers. She states her headache has been persistent, behind both eyes and sounds and lights are bothering her. She describes as a migraine headache. Denies any thunderclap onset and was gradual in nature. No neuropathy or neurological deficits. No loss of consciousness or altered mental status. No head trauma. No anticoagulation is. She has not tried anything besides Tylenol which has not helped her. Related Data Home Medications ?Medication ?Instructions ?Recorded ?Confirmed ?Last Taken ?Type escitalopram oxalate 10 mg tablet 10 mg PO DAILY 08/14/23 08/14/23 Unknown History modafinil 200 mg tablet 200 mg PO QAM 08/14/23 08/14/23 Unknown History Allergies Allergy/AdvReac Type Severity Reaction Status Date / Time No Known Allergies Allergy Verified 10/12/24 19:14 Review of Systems 2 Review of Systems: As reviewed above in HPI [facility] Past Medical History Medical History Idiopathic hypersomnia Gestational hypertension Gestational diabetes Anxiety Fracture of right ankle Bilateral arm fractures History of inguinal hernia GERD (gastroesophageal reflux disease) Surgical History Surgical History History of gynecological procedure (06/30/22) mirena iud insertion History of endoscopy (~06/12/21) normal History of tonsillectomy and adenoidectomy as child History of inguinal hernia repair 2010 Family History Family History Father Hypertension Hypothyroid Grandparent Diabetes mellitus paternal grandmother Social History Social History Smoking status: Never smoker Second hand tobacco smoke exposure: No Alcohol intake: never Substance use: never Substance use type: does not use Do You Feel Safe in your Home?: Yes Lack of Transportation: No Lack of Food: Never True Current Housing: I Have Housing Concerned About Future Housing: No Difficulty Paying Gas/Electric Bills: No Difficulty Paying for Meds: No Currently Unemployed: No Education: High School Diploma/GED Difficulty w/ Childcare or Family Care: No Living arrangements: with family Additional living arrangements comments: parents Occupation/Education: occupation 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 Mucous membranes moist. NECK: Supple. CHEST: [Clear to auscultation. No respiratory distress.] HEART: [Regular rate and rhythm]. No murmur heard. [Normal peripheral pulses.] ABDOMEN: [Soft, nondistended], [nontender], [No rigidity or guarding] EXTREMITIES: Normal range of motion. [No edema.] SKIN: Warm, dry, no rash. NEURO: [No focal deficits]. Alert and oriented [x3.] PSYCH: [Normal mood and affect.] Course Vital Signs Vital signs: Vital Signs Temperature 36.4 C L 10/12/24 19:17 Pulse Rate 101 H 10/12/24 19:17 Respiratory Rate 15 10/12/24 19:17 Blood Pressure 115/97 H 10/12/24 19:17 Pulse Oximetry 100 10/12/24 19:17 Oxygen Delivery Room Air 10/12/24 19:17 Temperature 36.4 C L 10/12/24 19:17 Pulse Rate 101 H 10/12/24 19:17 Respiratory Rate 15 10/12/24 19:17 Blood Pressure 115/97 H 10/12/24 19:17 Pulse Oximetry 100 10/12/24 19:17 Oxygen Delivery Room Air 10/12/24 19:17 MDM - Headache MDM Narrative Medical decision making narrative: 24-year-old female presenting with a headache she describes as a migraine behind both her eyes associated with nausea, vomiting, photophobia, phonophobia. She was concerned that could be related to a fireplace at a stove she had at her job although no one around her is having similar symptoms. Symptoms going on for 2 days now. Has tried Tylenol without relief. Vital signs reassuring, no significant tachycardia, fever, hypoxia, tachypnea or blood pressure elevations. She has an unremarkable neurological assessment and awake alert oriented. Does exhibit some photophobia with light but otherwise unremarkable exam. Patient will be treated with a migraine cocktail including Decadron, Compazine, diphenhydramine, fluid bolus. Basic laboratory studies and a blood gas were ordered to assess carbon monoxide level although very unlikely given her symptoms going on for 2 days without exposure since Thursday and no around her having similar symptoms. No present suspicion for intracranial pathology without the classical features suspicious for subarachnoid or mass effect. We will re-evaluate patient after medications and she will likely be safe for discharge if workup unremarkable. Patient's workup was reassuring. No significant leukocytosis or anemia. Normal platelet count. ABG shows normal pH, normal carboxyhemoglobin and no other acute concerns. Normal PaO2. Electrolyte panel was unremarkable. Normal creatinine, normal glucose, normal LFTs. Urinalysis with no signs of infection. Negative test. Patient was re-evaluated and had improvement her headache. She is safe for discharge home at this time. Medical Records Attestation: I reviewed the patient's medical records. Lab Data Attestation: I reviewed the patient's lab results. 10/12/24 19:35 10/12/24 19:35 Labs: Lab Results 10/12/24 10/12/24 10/12/24 Range/Units 19:35 19:44 20:02 WBC 10.6 H (4.5-10.0) K/mm3 RBC 5.03 (4.2-5.4) M/mm3 Hgb 14.8 (12.0-15.0) g/dL Hct 43.1 (37.0-47.0) % MCV 85.7 (80-100) fl MCH 29.4 (26-34) pg MCHC 34.3 (32-36) g/dl RDW 12.3 (11.5-14.5) % Plt Count 239 (150-375) k/mm3 MPV 8.5 (7.4-10.4) fl Immature Gran % (Auto) 0.5 (0-0.5) % Neut % (Auto) 86.1 H (45.5-73.1) % Lymph % (Auto) 7.7 L (18.3-44.2) % [place] % (Auto) 3.9 (2.6-8.5) % Eos % (Auto) 1.4 (0-4.4) % Baso % (Auto) 0.4 (0.2-1.2) % Lymph # (Auto) 0.82 L (0.9-3.2) K/mm3 [place] # (Auto) 0.4 (0.1-0.6) K/mm3 Eos # (Auto) 0.2 (0-0.3) K/mm3 Baso # (Auto) 0.0 (0.0-0.1) K/mm3 Abs Immat Gran (auto) 0.05 H (0.00-0.031) K/mm3 Absolute Neuts (auto) 9.1 H (1.3-6.7) K/mm3 Absolute Nucleated RBC 0.000 (0.0-0.012) K/mm3 Nucleated RBC % 0.0 (0.0-0.2) % Methemoglobin 0.4 (0-1.5) %THb Sodium 137 (137-145) mmol/L Potassium 3.9 (3.4-5.0) mmol/L Chloride 104 (98-107) mmol/L Carbon Dioxide 23 (22-30) mmol/L Anion Gap 10 (4-12) mmol/L BUN 16 D (7-17) mg/dL Creatinine 0.67 L (0.7-1.0) mg/dL Estim Creat Clear Calc 96 ml/min Estimated GFR > 60 (59 - ) Glucose 101 (65-110) mg/dL Calcium 8.8 (8.4-10.2) mg/dL Total Bilirubin 1.1 (0.2-1.3) mg/dL AST 29 (14-36) U/L ALT 29 (6-35) U/L Alkaline Phosphatase 79 (38-126) U/L Total Protein 8.0 (6.3-8.2) g/dL Albumin 4.5 (3.5-5.1) g/dL Lipase 49 (23-300) U/L Urine Color Yellow (Yellow) Urine Appearance Clear (Clear) Urine pH 6.0 (5.0-9.0) Ur Specific [place] 1.027 (1.001-1.035) Urine Protein Negative (Negative) mg/dL Urine Glucose (UA) Negative (Negative) mg/dL Urine Ketones 3+ H (Negative) mg/dL Ur Blood (Man) Negative (Negative) Urine Nitrate Negative (Negative) Urine Bilirubin Negative (Negative) Urine Urobilinogen 1.0 (<2.0) mg/dL Leukocyte Esterase Rfl Negative (Negative) SEBASTIÁN/UL POC Urine HCG, Qual (Negative) 10/12/24 Range/Units 20:16 WBC (4.5-10.0) K/mm3 RBC (4.2-5.4) M/mm3 Hgb (12.0-15.0) g/dL Hct (37.0-47.0) % MCV (80-100) fl MCH (26-34) pg MCHC (32-36) g/dl RDW (11.5-14.5) % Plt Count (150-375) k/mm3 MPV (7.4-10.4) fl Immature Gran % (Auto) (0-0.5) % Neut % (Auto) (45.5-73.1) % Lymph % (Auto) (18.3-44.2) % [place] % (Auto) (2.6-8.5) % Eos % (Auto) (0-4.4) % Baso % (Auto) (0.2-1.2) % Lymph # (Auto) (0.9-3.2) K/mm3 [place] # (Auto) (0.1-0.6) K/mm3 Eos # (Auto) (0-0.3) K/mm3 Baso # (Auto) (0.0-0.1) K/mm3 Abs Immat Gran (auto) (0.00-0.031) K/mm3 Absolute Neuts (auto) (1.3-6.7) K/mm3 Absolute Nucleated RBC (0.0-0.012) K/mm3 Nucleated RBC % (0.0-0.2) % Methemoglobin (0-1.5) %THb Sodium (137-145) mmol/L Potassium (3.4-5.0) mmol/L Chloride (98-107) mmol/L Carbon Dioxide (22-30) mmol/L Anion Gap (4-12) mmol/L BUN (7-17) mg/dL Creatinine (0.7-1.0) mg/dL Estim Creat Clear Calc ml/min Estimated GFR (59 - ) Glucose (65-110) mg/dL Calcium (8.4-10.2) mg/dL Total Bilirubin (0.2-1.3) mg/dL AST (14-36) U/L ALT (6-35) U/L Alkaline Phosphatase (38-126) U/L Total Protein (6.3-8.2) g/dL Albumin (3.5-5.1) g/dL Lipase (23-300) U/L Urine Color (Yellow) Urine Appearance (Clear) Urine pH (5.0-9.0) Ur Specific [place] (1.001-1.035) Urine Protein (Negative) mg/dL Urine Glucose (UA) (Negative) mg/dL Urine Ketones (Negative) mg/dL Ur Blood (Man) (Negative) Urine Nitrate (Negative) Urine Bilirubin (Negative) Urine Urobilinogen (<2.0) mg/dL Leukocyte Esterase Rfl (Negative) SEBASTIÁN/UL POC Urine HCG, Qual Negative (Negative) ABG Data ABG results: 10/12/24 19:44 Puncture Site Left radial ABG pH 7.414 ABG pCO2 33.7 L ABG pO2 94.7 ABG PO2/FiO2 Ratio 4.51 ABG HCO3 21.1 L ABG O2 Saturation 97.4 ABG O2 Content 20.6 ABG Base Excess -2.6 A-a Gradient 14.7 Oxyhemoglobin 96.6 Carboxyhemoglobin 0.6 Reduced Hemoglobin 2.4 Total Hemoglobin 15.1 O2 Delivery Device Not Reportable O2 Liters/Min Not Reportable FiO2 21 Attestation: I personally reviewed and interpreted this ABG as follows: Interpretation: Normal pH, normal pCO2, normal carboxyhemoglobin. No hypoxia. Discharge Plan Discharge Clinical Impression: Headache, migraine Patient Disposition: Home, Self-Care Condition: Stable Instructions: Antibiotic Form, Migraine Headache (ED) Additional Instructions: Your laboratory studies are very reassuring. No detection of carbon monoxide or carbon monoxide poisoning. You were treated for migraine headache. Follow-up with regular doctor as needed. Patient Language: Slovak Prescriptions: No Action modafinil 200 mg tablet 200 mg PO QAM escitalopram oxalate 10 mg tablet 10 mg PO DAILY ibuprofen 600 mg Tablet 600 mg PO Q6H PRN (Reason: Cramping) Qty: 30 0RF Follow-up/Referrals: Veda,Zhao Deutsch MD [Non-Staff] - Time of Disposition: 20:41
[2024-10-12 19:52] LABS: Alveolar/Arterial O2 Gradient 14.7 mmHg; Base Excess ABG -2.6 mEq/l (+/-2.0); Carboxyhemoglobin 0.6 % THb (0-2.0); Fractional Inspired Oxygen 21 %; HCO3 ABG 21.1 mEq/l (22.0-26.0); Methemoglobin ABG 0.4 %THb (0-1.5); Oxygen Content ABG 20.6 %vol (16.0-22.0); Oxygen Saturation ABG 97.4 % (95.0-100.0); Oxyhemoglobin 96.6 % THb (90.0-100.0); PCO2 ABG 33.7 mmHg (35.0-45.0); PO2 ABG 94.7 mmHg (80.0-100.0); PO2 FiO2 Ratio Arterial Blood 4.51 %; Reduced Hemoglobin 2.4 %THb (0-5.0); Total Hemoglobin 15.1 g/dL (12.0-18.0); pH ABG 7.414 (7.350-7.450)
[2024-10-12 19:54] LABS: Modified Allen's Test Pass; Site Drawn LEFT RADIAL
[2024-10-12 19:55] LABS: Alanine Aminotransferase 29 U/L (6-35); Albumin Level 4.5 g/dL (3.5-5.1); Alkaline Phosphatase 79 U/L (38-126); Anion Gap 10 mmol/L (4-12); Aspartate Amino Transferase 29 U/L (14-36); Bilirubin,Total 1.1 mg/dL (0.2-1.3); Blood Urea Nitrogen 16 mg/dL (7-17); Calcium 8.8 mg/dL (8.4-10.2); Carbon Dioxide 23 mmol/L (22-30); Chloride 104 mmol/L (98-107); Estimated CRCL calculation 96 ml/min; Estimated Glomerular Filt Rate > 60; Glucose 101 mg/dL (65-110); Lipase 49 U/L (23-300); Potassium 3.9 mmol/L (3.4-5.0); Sodium 137 mmol/L (137-145)
[2024-10-12] MEDS: PROCHLORPERAZINE EDISYLATE 10 MG/2 ML VIAL IV PUSH (19:57)
--- OUTSIDE RECORDS SUMMARY | 2024-10-12 19:57 | XMS_ITS | Continuity of Care Document ---
Author Organization [facility] Address [address] [place] [address] [place] [address] Phone Care Team Providers Care Edge Banding Machine Offbearer Name Role Phone Pollock OD, Rudolph Unavailable Unavailable Procedures Procedure Date Eye Exam, New Patient Advance Directives Directive Yes / No Effective Date File Name No Information Encounters Encounter Description Practice Location Reason(s) For Visit Diagnoses Date Provider Providers Copied on Encounter [facility], [address], [place], [place], [id number], [place] tel:[phone] SEC [facility] No Information 5-200 8 Pollock OD Rudolph. [address] [facility] , [address], [place], [place], [facility], [place]. tel:[phone] Referring Provider: Morena Barlow MD, [address], [place], [place], [facility]. tel:[phone] Family History Family Member Type Diagnosis Age At Onset No Information Payers Payer name Insurance type Covered libertarian ID Authoriza tion(s) No Information Social History [...]
--- OUTSIDE RECORDS SUMMARY | 2024-10-12 19:57 | XMS_ITS | Clinical Summary ---
Author Organization [facility] [employer] Address [address] [place] [address] Care Team Providers Care Branch Logistics Supervisor Name Role Phone Morena Barlow MD Primary Care Provider [phone] Source Comments [facility] [employer],non-owned Affiliates and Associated Physician Practices is amultiple site organization consisting of ambulatory clinics and hospital sitesin [place], [place], [place] and [place]. This disclosure is being madepursuant to the Care Everywhere program and may not contain all information available regarding this patient. Last updated 18.[facility] [employer] Allergies No known active allergies Medications * [...] age to complete this topic Care Teams Branch Logistics Supervisor Relationship Specialty Start Date End Date Morena Barlow MD [address] [facility] [address] [place] [id number] PCP - General Pediatrics 03/21/12
[2024-10-12] MEDS: diphenhydrAMINE HCl INJ 50 MG/ML VIAL 25 MG IV PUSH (19:58)
[2024-10-12] MEDS: dexAMETHasone SOD PHOS INJ 10 MG/ML 1 ML VIAL IV PUSH (19:59)
[2024-10-12] MEDS: SODIUM CHLORIDE 0.9% IV 1,000 ML 999 ML IV CONT (19:59)
[2024-10-12 20:17] LABS: BEDSIDEPREGUCG Negative (Negative)
[2024-10-12 20:21] LABS: Add Urine Microscopic? NO; Appearance Urine Clear (Clear); Bilirubin Urine Negative (Negative); Blood Urine Negative (Negative); Color Urine Yellow (Yellow); Glucose Urine UA Negative (Negative); Ketones Urine 3+ mg/dL (Negative); Leukocyte Esterase Ur Negative LEU/UL (Negative); Nitrate Urine Negative (Negative); Protein Urine Negative (Negative); Specific Grav Ur 1.027 (1.001-1.035)
[2024-10-12 20:49] VITALS: BP 111/51; PULSE 90; RESP 16; O2SAT 98
== END 2024-10-12 20:51 | disposition home or self-care (01) ==
PROVIDERS: Emergency Provider Student in an Organized Health Care Education/Training Program; PCP Family Medicine
DX: G43.909 Migraine, unspecified, not intractable, without status migrainosus (principal); K21.9 Gastro-esophageal reflux disease without esophagitis; F41.9 Anxiety disorder, unspecified
CPT/HCPCS: 36415; 36600; 80053; 81003; 81025; 82375; 82805; 83050; 83690; 85018; 85025; 96361; 96374; 96375; 99284; J0780; J1100; J1200; J7030